=== PATIENT | female | born 1995 | race American Indian/Alaskan Native ===

== ENCOUNTER 2017-09-30 15:00 | Inpatient (IN) | payer OTHER ==
[2017-09-30 14:31] VITALS: BMI 28.8
[2017-09-30] MEDS: Oxycodone/Acetaminophen 5/325 mg Tab PO PRN (18:05)
--- NOTE | 2017-09-30 19:06 | PCM.BM ---
<Alexa Tipton - Last Filed: 09/30/17 19:05> Treatment Plan Problems - Problems identified on initial assessmt Suicidal Ideation Date Initiated: 09/30/17 Time Initiated: 15:20 Assessment reference: NA Status: Monitor Depression Date Initiated: 09/30/17 Time Initiated: 15:20 Assessment reference: NA Status: Active Treatment assets and liabiliti Patient Assests: good support system, negotiates basic needs Patient Liabilities: substance abuse (ETOH, Marijuana) - Milieu Protocol Maintain good personal hygiene: daily Encourage regular showers, daily Remind patient to perform daily oral care, every shift Assist patient to perform ADL's Maintain personal safety: every shift Educate patient to report safety concerns to staff, every shift Monitor environment for contraband/sharps Medication safety: Monitor for expected outcome, potential side effects: every shift, Assess barriers to learning: every shift, Assess readiness for medication education: every shift <Campbell Grant - Last Filed: 10/01/17 13:10> - Diagnosis (1) Depression, major, severe recurrence Status: Acute Interventions: 10/01/17 13:11 * Assess/adjust medications daily and /or as needed * See patient on an individual basis 7x/week to assess symptoms of depression * Monitor for side effects & effectiveness of medications * Individual therapy with CBT * Attend groups (2) Suicidal behavior with attempted self-injury Status: Acute Interventions: 10/01/17 13:11 * Assess/adjust medications daily and /or as needed * Discuss risks, benefits, side effects and alternatives of medications * See patient on an individual basis 7x/week to assess level of suicidal thoughts * Discuss safety plan * CBT for suicide prevention and depression * Attend groups * <Elisabeth Ruano - Last Filed: 10/03/17 12:14> Family Contact Family contact: Patient agrees to contact - Goals for Treatment Patient goals for treatment: "I want to go to counseling." Discharge/Continuing Care - Education Needs Education Needs: Patient Medication, Patient Coping Skills, Patient Community resources, Patient Aftercare Safety Plan - Discharge Discharge Criteria: Free of Suicidal thoughts, Normal sleep pattern, Ability to care for self, Reduction of target symptoms Discharge to:: With Family - Treatment Team Participation Discussed with Family/SO: No Was Patient/Family/SO present at Treatment Team Meeting: Yes
[2017-10-01] MEDS: Oxycodone/Acetaminophen 5/325 mg Tab PO PRN ×3 (04:49→23:40)
[2017-10-01] MEDS: Multiple Vitamins Tab PO SCH (09:28)
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
[2017-10-02] MEDS: Multiple Vitamins Tab PO SCH (10:00)
[2017-10-03 07:41] VITALS: O2SAT 97
[2017-10-03] MEDS: Multiple Vitamins Tab PO SCH (09:43)
--- NOTE | 2017-10-03 12:03 | PCM.PYCHPN ---
Psychiatric Progress Note - Psychiatric Progress Note Patient seen today, length of contact: 20 min Patient Chief Complaint: "Better" Problems Identified/Issues Discussed: The pt is seen, chart reviewed, case discussed with staff. The pt is compliant with medications and reports no side-effects. Symptoms are improving but needs more time to stabilize. Still depressed but "not as much" suicidal. Contracts for safety Suicide prevention discussed in detail After care discussed, support and psychoeducation give She plans to go to [place] with her aunt. Medication Change: Yes Medical Record Reviewed: Yes Mental Status Examination - Cognitive Function Orientation: Person, Place, Situation, Time Memory: Intact Attention: WNL Concentration: WNL Association: WNL Fund of Knowledge: WNL - Mood Mood: Depressed, Anxious - Affect Affect: Constricted - Speech Speech: Appropriate - Formal Thought Process Formal Thought Process: No Impairment - Suicidal Ideation Suicidal Ideation: No - Homicidal Ideation Homicidal Ideation: No Goal/Treatment Plan - Goal/Treatment Plan Need for Continued Stay: Severe depression anxiety, Discharge may exacerbated symptoms, Severe functional impairment Progress Toward Problem(s) and Goals/Treatment Plan: Continue Zoloft for depression and panic disorder Continue trazodone for insomnia, consider seroquel All risks, benefits and alternatives of the meds discussed, and the pt agreed and understood. Attend groups and activities Individual therapy daily with CBT/DBT Psychoeducation and support daily Encourage compliance with meds and after care Refer to outpatient program Teach healthy lifestyle methods, i.e. diet, exercise, meditation She responded well to reassurance, positive guidance and support. Estimated Date of D/C: 10/10/17 - Smoking Cessation Smoking Cessation Initiated: Yes
--- NOTE | 2017-10-03 12:06 | PCM.PYCHPN ---
Psychiatric Progress Note - Psychiatric Progress Note Patient seen today, length of contact: 20 min Patient Chief Complaint: "Tired" Problems Identified/Issues Discussed: The pt is seen, chart reviewed, case discussed with staff. Support given, CBT used briefly No new symptoms reported, improving slowly and needs more time No SEs from medications, risks discussed. After care discussed - [place] with aunt Suicide prevention is discussed in detail She is slightly better today but still having dep and passive SI, no plan/ intention She contracts for safety Medication Change: Yes Medical Record Reviewed: Yes Mental Status Examination - Cognitive Function Orientation: Person, Place, Situation, Time Memory: Intact Attention: WNL Concentration: WNL Association: WNL Fund of Knowledge: WNL - Mood Mood: Depressed, Anxious - Affect Affect: Constricted - Speech Speech: Appropriate - Formal Thought Process Formal Thought Process: No Impairment - Suicidal Ideation Suicidal Ideation: No - Homicidal Ideation Homicidal Ideation: No Goal/Treatment Plan - Goal/Treatment Plan Need for Continued Stay: Severe depression anxiety, Discharge may exacerbated symptoms, Severe functional impairment Progress Toward Problem(s) and Goals/Treatment Plan: Continue Zoloft for depression and panic disorder Continue trazodone for insomnia, consider seroquel All risks, benefits and alternatives of the meds discussed, and the pt agreed and understood. Attend groups and activities Individual therapy daily with CBT/DBT Psychoeducation and support daily Encourage compliance with meds and after care Refer to outpatient program Teach healthy lifestyle methods, i.e. diet, exercise, meditation She responded well to reassurance, positive guidance and support. Estimated Date of D/C: 10/10/17
[2017-10-03 14:06] LABS: BASO % 0.3 % (0.0-2.0); EOS # 0.1 K/uL (0.0-0.7); EOS % 0.9 % (0.0-4.0); HEMOGLOBIN 10.9 g/dL (11.0-16.0); LYMPH # 1.9 K/uL (1.0-4.3); MEAN CELL VOLUME 87.6 fL (81.0-99.0); MEAN CORPUSCULAR HEMOGLOBIN 29.4 pg (27.0-31.0); MEAN CORPUSCULAR HGB CONC 33.5 g/dL (33.0-37.0); MONO # 0.6 K/uL (0.0-0.8); NEUT # 5.3 K/uL (1.8-7.0); NEUT % 66.8 % (50.0-75.0); RBC 3.72 Mil/uL (3.80-5.20); RED CELL DISTRIBUTION WIDTH 13.6 % (11.5-14.5)
[2017-10-03 14:41] LABS: ALB/GLOB RATIO 1.2 (1.0-2.1); ALBUMIN 4.2 g/dL (3.5-5.0); ALT/SGPT 28 U/L (9-52); AST/SGOT 32 U/L (14-36); BLOOD UREA NITROGEN 15 mg/dL (7-17); CALCIUM 9.5 mg/dl (8.6-10.4); GFR AFRICAN-AMERICAN > 60; GFR NON-AFRICAN AMERICAN > 60
[2017-10-04] MEDS: Multiple Vitamins Tab PO SCH (10:47)
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
[2017-10-05] MEDS: Multiple Vitamins Tab PO SCH (10:12)
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
--- NOTE | 2017-10-05 12:43 | RAD ---
PROCEDURE: Radiographs of the Left Forearm HISTORY: hx forearm ORIF COMPARISON: None available. TECHNIQUE: Frontal and lateral views obtained. FINDINGS: BONES: Status post ORIF oblique fracture mid ulnar diaphysis. Fracture fragments are in near anatomic alignment. Plate and screw fixation device traverses the fracture. No additional fracture identified. A fiberglass splint is noted. JOINT SPACES: Unremarkable. OTHER FINDINGS: None. IMPRESSION: Status post ORIF mid ulnar fracture.
--- NOTE | 2017-10-05 13:41 | PCM.PYCHPN ---
Psychiatric Progress Note - Psychiatric Progress Note Patient seen today, length of contact: 19 min Patient Chief Complaint: "I am numb" Problems Identified/Issues Discussed: The pt is seen, chart reviewed, case discussed with staff. She is mostly in patients' lounge playing cards, and she is less cheerful. She blames [place] for that but she understood its effects/side-effects No SI/SP now b/c she is "waiting God to do that...I already attempted and God did not want me to then." Yet, yesterday, she was voicing ongoing SI and that she would try it as soon as she can "outside" to her aunt, who was, naturally, very shaken by that. She was kept in monitoring room but today, she contracts and will follow safety plan, a little more future-oriented. Support given CBT/DBT reviewed Zoloft increased (as of tomorrow) Medication Change: Yes (increase zoloft) Medical Record Reviewed: Yes Mental Status Examination - Cognitive Function Orientation: Person, Place, Situation, Time Memory: Intact Attention: WNL Concentration: WNL Association: WNL Fund of Knowledge: WNL - Mood Mood: Depressed, Anxious - Affect Affect: Constricted - Speech Speech: Appropriate - Formal Thought Process Formal Thought Process: No Impairment - Suicidal Ideation Suicidal Ideation: No - Homicidal Ideation Homicidal Ideation: No Goal/Treatment Plan - Goal/Treatment Plan Need for Continued Stay: Severe depression anxiety, Discharge may exacerbated symptoms, Severe functional impairment Progress Toward Problem(s) and Goals/Treatment Plan: Continue Zoloft for depression and panic disorder, dose increase Added lithium for anti-suicide and mood swings, irritability Continue seroquel - it helped, but increase to 100 mg b/c she still woke up Ativan 0.5 tid for anxiety All risks, benefits and alternatives of the meds discussed, and the pt agreed and understood. Attend groups and activities Individual therapy daily with CBT/DBT Psychoeducation and support daily Encourage compliance with meds and after care Refer to outpatient program Teach healthy lifestyle methods, i.e. diet, exercise, meditation She responded well to reassurance, positive guidance and support. Estimated Date of D/C: 10/11/17 If changed, why: still very depressed
[2017-10-05] MEDS ORDERED: Ergocalciferol 50,000 Intl Units Cap PO SCH ×2 (14:00→18:00)
[2017-10-05] MEDS ORDERED: Oxycodone/Acetaminophen 5/325 mg Tab PO PRN (14:00)
[2017-10-06] MEDS: Multiple Vitamins Tab PO SCH (10:30)
--- NOTE | 2017-10-06 12:39 | PCM.PYCHPN ---
Psychiatric Progress Note - Psychiatric Progress Note Patient seen today, length of contact: 21 min Patient Chief Complaint: "I am OK, I won't kill myself" Problems Identified/Issues Discussed: The pt is seen, chart reviewed, case discussed with staff. She says she will never "do that" if she is with her aunt b/c it would devastate her. How to get help from professionals and family discussed Suicide prevention discussed Still looks down but socializes more No acting up since yesterday and last events discussed, she regrets, but then again she says "that was how I felt" No SEs from meds Medication Change: No Medical Record Reviewed: Yes Mental Status Examination - Cognitive Function Orientation: Person, Place, Situation, Time Memory: Intact Attention: WNL Concentration: WNL Association: WNL Fund of Knowledge: WNL - Mood Mood: Depressed, Anxious - Affect Affect: Constricted - Speech Speech: Appropriate - Formal Thought Process Formal Thought Process: No Impairment - Suicidal Ideation Suicidal Ideation: No - Homicidal Ideation Homicidal Ideation: No Goal/Treatment Plan - Goal/Treatment Plan Need for Continued Stay: Severe depression anxiety, Discharge may exacerbated symptoms, Severe functional impairment Progress Toward Problem(s) and Goals/Treatment Plan: Continue Zoloft for depression and panic disorder, dose increased to 100 mg Added lithium for anti-suicide and mood swings, irritability Check level Continue seroquel - it helped, but increase to 100 mg b/c she still woke up Ativan 0.5 tid for anxiety All risks, benefits and alternatives of the meds discussed, and the pt agreed and understood. Attend groups and activities Individual therapy daily with CBT/DBT Psychoeducation and support daily Encourage compliance with meds and after care Refer to outpatient program Teach healthy lifestyle methods, i.e. diet, exercise, meditation She responded well to reassurance, positive guidance and support. Estimated Date of D/C: 10/11/17
[2017-10-07] MEDS: Multiple Vitamins Tab PO SCH (10:13)
--- NOTE | 2017-10-07 13:38 | PCM.PYCHPN ---
Psychiatric Progress Note - Psychiatric Progress Note Patient seen today, length of contact: 25 min Patient Chief Complaint: "I am just upset but that's fine" Problems Identified/Issues Discussed: The pt is seen twice, chart reviewed, case discussed with staff. Crowning Inspector also spoke to her aunt, who told the sports book writer she plans to take her to [place] on Tuesday However, pt was insisting she be d/c'ed on Tuesday. Crowning Inspector explained why this is not doable in a positive way but she still got upset and insinuated that she is afraid to talk about her feelings bc of fear of getting kept longer. Reassurance and validation provided. She again denies any SI or AP, adamantly, and repeats that she would never do that to her aunt. She is looking forward to "move on with her life;" first [place], then back to [place], and start therapy. She is iffy about meds and makes disparaging remarks at times. Psych-info given. She was denying [place] bc "it numbs my emotions, which I don't like" but agreed to take at least one for now No SEs from meds She says things like "I need affection, hug, my aunt can provided that to me, no one here can" and "I don't want my parents to know and I am scared to even think about that" Supportive tx within CBT/DBT context provided Medication Change: No Medical Record Reviewed: Yes Mental Status Examination - Cognitive Function Orientation: Person, Place, Situation, Time Memory: Intact Attention: WNL Concentration: WNL Association: WN Fund of Knowledge: WNL - Mood Mood: Depressed (somewhat less), Anxious - Affect Affect: Constricted - Speech Speech: Appropriate - Formal Thought Process Formal Thought Process: No Impairment - Suicidal Ideation Suicidal Ideation: No - Homicidal Ideation Homicidal Ideation: No Goal/Treatment Plan - Goal/Treatment Plan Need for Continued Stay: Severe depression anxiety, Discharge may exacerbated symptoms, Severe functional impairment Progress Toward Problem(s) and Goals/Treatment Plan: Continue Zoloft for depression and panic disorder, dose increased to 100 mg Added lithium for anti-suicide and mood swings, irritability, however she now wants to take one pill only. Continue seroquel Ativan 0.5 tid for anxiety All risks, benefits and alternatives of the meds discussed, and the pt agreed and understood. Attend groups and activities Individual therapy daily with CBT/DBT Psychoeducation and support daily Encourage compliance with meds and after care Refer to outpatient program Teach healthy lifestyle methods, i.e. diet, exercise, meditation She responded well to reassurance, positive guidance and support. Estimated Date of D/C: 10/11/17
[2017-10-08] MEDS: Multiple Vitamins Tab PO SCH (09:16)
--- NOTE | 2017-10-08 15:38 | PCM.PYCHPN ---
Psychiatric Progress Note - Psychiatric Progress Note Patient seen today, length of contact: 15 min Patient Chief Complaint: "I'm feeling better" Problems Identified/Issues Discussed: Pt was seen and evaluated. Pt stated that she is feeling better. She believes in God and happy that God saved her life. Currently pt is still depressed and need time to stabilized on meds. She still has depressive symptoms. Pt denied SI , HI, intent or plan. Pt stated that she is compliant with meds and denied s/e. Pt requested to increase the dosage of Ibuprofen for her arm pain. Medication Change: No Medical Record Reviewed: Yes Mental Status Examination - Cognitive Function Orientation: Person, Place, Situation, Time Memory: Intact Attention: WNL Concentration: WNL Association: [facility] Fund of Knowledge: WN - Mood Mood: Depressed (somewhat less), Anxious - Affect Affect: Constricted - Speech Speech: Appropriate - Formal Thought Process Formal Thought Process: No Impairment Psychotic Thoughts and Behaviors: denied - Suicidal Ideation Suicidal Ideation: No Plan: denied - Homicidal Ideation Homicidal Ideation: No Plan: denied Goal/Treatment Plan - Goal/Treatment Plan Need for Continued Stay: Severe depression anxiety, Discharge may exacerbated symptoms, Severe functional impairment Progress Toward Problem(s) and Goals/Treatment Plan: Continue current treatment as per primary team. Psychoeducation provided regarding diagnosis, treatment, meds benefits, side effects, risk and alternative choices. Pt verbalized understanding and agree with the treatment plan. Therapy in milieu Estimated Date of D/C: 10/11/17
[2017-10-09] MEDS: Multiple Vitamins Tab PO SCH (09:51)
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
[2017-10-10 06:38] VITALS: RESP 20; TEMP 98.5
[2017-10-10] MEDS: Multiple Vitamins Tab PO SCH (10:29)
--- NOTE | 2017-10-10 14:22 | PCM.PYCHPN ---
Psychiatric Progress Note - Psychiatric Progress Note Patient seen today, length of contact: 20 min Patient Chief Complaint: "I am better today" Problems Identified/Issues Discussed: She is seen, case discussed chart reviewed and her aunt contacted She looks better and had an ok weekend w/o any "tantrums" Still depressed but not suicidal She talks future-oriented and more hopeful She thanked the headline writer for "not giving up on" her. Takes all meds, agrees with treatment plan re after care Support given. CBT used Medication Change: No Medical Record Reviewed: Yes Mental Status Examination - Cognitive Function Orientation: Person, Place, Situation, Time Memory: Intact Attention: WNL Concentration: WNL Association: WNL Fund of Knowledge: WNL - Mood Mood: Depressed (somewhat less), Anxious - Affect Affect: Constricted - Speech Speech: Appropriate - Formal Thought Process Formal Thought Process: No Impairment - Suicidal Ideation Suicidal Ideation: No - Homicidal Ideation Homicidal Ideation: No Goal/Treatment Plan - Goal/Treatment Plan Need for Continued Stay: Severe depression anxiety, Discharge may exacerbated symptoms, Severe functional impairment Progress Toward Problem(s) and Goals/Treatment Plan: Continue Zoloft for depression and panic disorder, dose increased to 100 mg Added lithium for anti-suicide and mood swings, irritability, however she now wants to take one pill only. Continue seroquel Ativan 0.5 tid for anxiety All risks, benefits and alternatives of the meds discussed, and the pt agreed and understood. Attend groups and activities Individual therapy daily with CBT/DBT Psychoeducation and support daily Encourage compliance with meds and after care Refer to outpatient program Teach healthy lifestyle methods, i.e. diet, exercise, meditation She responded well to reassurance, positive guidance and support. Estimated Date of D/C: 10/11/17
--- NOTE | 2017-10-10 15:10 | PCM.BM ---
<Elisabeth Ruano - Last Filed: 10/10/17 15:08> Treatment Plan Problems - Problems identified on initial assessmt Suicidal Ideation Date Initiated: 09/30/17 Time Initiated: 15:20 Assessment reference: NA Status: Monitor Depression Date Initiated: 09/30/17 Time Initiated: 15:20 Assessment reference: NA Status: Active Treatment assets and liabiliti Patient Assests: good support system, negotiates basic needs Patient Liabilities: substance abuse (ETOH, Marijuana) - Milieu Protocol Maintain good personal hygiene: daily Encourage regular showers, daily Remind patient to perform daily oral care, every shift Assist patient to perform ADL's Maintain personal safety: every shift Educate patient to report safety concerns to staff, every shift Monitor environment for contraband/sharps Medication safety: Monitor for expected outcome, potential side effects: every shift, Assess barriers to learning: every shift, Assess readiness for medication education: every shift Milieu Narrative: Continue Zoloft for depression and panic disorder, dose increased to 100 mg Added lithium for anti-suicide and mood swings, irritability, however she now wants to take one pill only. Continue seroquel Ativan 0.5 tid for anxiety All risks, benefits and alternatives of the meds discussed, and the pt agreed and understood. Attend groups and activities Individual therapy daily with CBT/DBT Psychoeducation and support daily Encourage compliance with meds and after care Refer to outpatient program Teach healthy lifestyle methods, i.e. diet, exercise, meditation She responded well to reassurance, positive guidance and support. Family Contact Family contact: Patient agrees to contact - Goals for Treatment Patient goals for treatment: "I want to go to counseling." Discharge/Continuing Care - Education Needs Education Needs: Patient Medication, Patient Coping Skills, Patient Community resources, Patient Aftercare Safety Plan - Discharge Discharge Criteria: Free of Suicidal thoughts, Normal sleep pattern, Ability to care for self, Reduction of target symptoms Discharge to:: With Family - Treatment Team Participation Patient/Family/SO Statement: Continue Zoloft for depression and panic disorder, dose increased to 100 mg Added lithium for anti-suicide and mood swings, irritability, however she now wants to take one pill only. Continue seroquel Ativan 0.5 tid for anxiety All risks, benefits and alternatives of the meds discussed, and the pt agreed and understood. Attend groups and activities Individual therapy daily with CBT/DBT Psychoeducation and support daily Encourage compliance with meds and after care Refer to outpatient program Teach healthy lifestyle methods, i.e. diet, exercise, meditation She responded well to reassurance, positive guidance and support. Discussed with Family/SO: No Was Patient/Family/SO present at Treatment Team Meeting: Yes Treatment Plan Review - Problem Suicidal Ideation Time Initiated: 15:20 Depression Time Initiated: 15:20 - Discharge / Continuing Care Discharge to:: With Family Behavioral Health Services: Outpatient therapy Health Needs: Follow up care/test, Medications/Rx <Campbell Grant - Last Filed: 10/10/17 23:18> - Diagnosis (1) Depression, major, severe recurrence Status: Acute Interventions: 10/10/17 23:18 * Assess/adjust medications daily and /or as needed * See patient on an individual basis 7x/week to assess symptoms of depression * Monitor for side effects & effectiveness of medications * (2) Suicidal behavior with attempted self-injury Status: Acute Interventions: 10/10/17 23:18 * Assess/adjust medications daily and /or as needed * Discuss risks, benefits, side effects and alternatives of medications * See patient on an individual basis 7x/week to assess level of suicidal thoughts *
[2017-10-11 06:36] VITALS: BP 90/60; PULSE 66
[2017-10-11 08:41] LABS: ALB/GLOB RATIO 1.2 (1.0-2.1); ALBUMIN 3.6 g/dL (3.5-5.0); ALT/SGPT 24 U/L (9-52); AST/SGOT 19 U/L (14-36); BLOOD UREA NITROGEN 16 mg/dL (7-17); CALCIUM 9.2 mg/dl (8.6-10.4); GFR AFRICAN-AMERICAN > 60; GFR NON-AFRICAN AMERICAN > 60
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
== END 2017-10-11 10:30 | disposition home or self-care (01) | DRG 885 ==
LOC: C.5E 15:00 → EEVIPCON 15:00 → UNDOADMIN 15:37 → EEVIPCON 15:37 → C.5E 15:37
PROVIDERS: ADMIT Psychiatry & Neurology Psychiatry; ATTEND Psychiatry & Neurology Psychiatry
PROC: GZHZZZZ Group Psychotherapy (ICD-10-PCS; principal; 2017-09-30)
PROC: GZ58ZZZ Individual Psychotherapy, Cognitive-Behavioral (ICD-10-PCS; 2017-09-30)
PROC: GZ56ZZZ Individual Psychotherapy, Supportive (ICD-10-PCS; 2017-09-30)
DX: F33.2 Major depressive disorder, recurrent severe without psychotic features (principal); S52.202A Unspecified fracture of shaft of left ulna, initial encounter for closed fracture; R45.851 Suicidal ideations; F41.0 Panic disorder [episodic paroxysmal anxiety]; F12.20 Cannabis dependence, uncomplicated; G47.00 Insomnia, unspecified; Z81.8 Family history of other mental and behavioral disorders